=== PATIENT | female | born 1990 | race Caucasian/White ===

== ENCOUNTER 2017-06-25 07:58 | Inpatient (IN) | payer SELFPAY ==
[2017-06-25] MEDS ORDERED: Ephedrine Sulfate 50 MG/ML IV PRN (09:15)
[2017-06-25] MEDS ORDERED: OB EPIDURAL NAROPIN/SUFENTANIL IN NACL EPIDURAL PRN (09:15)
[2017-06-25] MEDS ORDERED: Lactated Ringers 1,000 ML IV ONE (09:15)
[2017-06-25] MEDS ORDERED: PITOCIN 30 UNITS/ LR 500 ML 500 ML IV SCH (09:30)
[2017-06-25] MEDS ORDERED: Lactated Ringers 1,000 ML IV SCH (09:30)
[2017-06-25] MEDS ORDERED: OMNIPEN 2 GM / NACL 100ML 100 ML ONE (09:35)
--- NOTE | 2017-06-25 10:14 | XRAY ---
Indication: Size and dates. Contractions. No care. 2-dimensional OB ultrasound performed. Comparison: None for this . There is a single viable intrauterine currently in cephalic presentation. Normal four-chamber heart with heart rates 138 BPM. Normal three-vessel cord. Cord insertion not seen. Visualized stomach, kidneys, and bladder appear unremarkable. Placenta is left lateral without abruption/previa. BPD measures 9.32 cm corresponding to 37 weeks 6 days. HC measures 33.00 cm corresponding to 37 weeks 4 days. AC measures 35.24 cm corresponding to 39 weeks 1 day. FL measures 7.63 cm corresponding to 39 weeks 0 day. SAVANNA is 3.3 cm. Impression: Single viable intrauterine with mean gestational age 38 weeks 3 days. Expected date confinement July 06, 2017. Oligohydramnios.
[2017-06-25] MEDS ORDERED: Anucort-HC SUPPOSITORY PR PRN (10:54)
[2017-06-25] MEDS ORDERED: TUCKS TP PRN (10:54)
[2017-06-25] MEDS ORDERED: Mylicon 80MG PO PRN (10:54)
[2017-06-25] MEDS ORDERED: MOTRIN 400 MG PO PRN (10:54)
[2017-06-25] MEDS ORDERED: NORCO 5/325 MG PO PRN (10:54)
[2017-06-25] MEDS ORDERED: TYLENOL EXTRA STRENGTH 500 MG PO PRN (10:54)
[2017-06-25] MEDS ORDERED: Dulcolax 10 MG SUPP PR PRN (10:54)
[2017-06-25] MEDS ORDERED: LANSINOH 40 GM TOP PRN (10:54)
[2017-06-25] MEDS ORDERED: Restoril 15 MG PO PRN (10:54)
[2017-06-25] MEDS ORDERED: Ambien 10 MG PO PRN (10:54)
[2017-06-25] MEDS ORDERED: CORTISONE 1% CREAM TP PRN (10:54)
[2017-06-25] MEDS ORDERED: Dermoplast Spray TP PRN (10:54)
[2017-06-25 12:46] LABS: ABO TYPING O; Antibody Screen NEGATIVE (NEGATIVE); RH TYPING POSITIVE
[2017-06-25] MEDS ORDERED: OMNIPEN 1GM / NaCl 100ML 100 ML IV SCH (13:17)
[2017-06-25] MEDS ORDERED: Colace 100 MG PO SCH (22:00)
[2017-06-26 06:10] LABS: BASOPHIL % 0.2 % (0.0-0.4); Basophil (Absolute #) 0.02 (0-0.4); Eosinophil % 1.1 % (0.00-5.0); Granulocyte Absolute (ANC) 6.67 (1.4-6.9); Hemoglobin 10.3 gm/dl (12.0-16.0); Lymphocyte (Absolute #) 1.56 (1.0-4.6); Lymphocytes % 17.3 % (24.0-44.0); Mean Cell Volume 79.9 fl (78-100); Mean Corpuscular Hemoglobin 24.9 pg (26-32); Mean Corpuscular Hgb Concent. 31.2 g/dl (32-36); Mean Platelet Volume 11.9 fl (6-9.5); Monocyte (Absolute #) 0.67 (0.0-1.3); Monocytes % 7.4 % (0.0-12.0); Platelet Count 171 K/mm3 (150-450); Red Blood Count 4.13 M/mm3 (4.1-5.4); Red Cell Distribution Width 16.1 % (11.5-14.0)
[2017-06-26 07:52] LABS: HEPATITIS B VIRUS CORE TOT AB Non Reactive (Non Reactive); HEPATITIS C VIRUS ANTIBODY Non Reactive (Non Reactive)
[2017-06-26 08:38] LABS: Slide Review 1 YES
[2017-06-26] MEDS ORDERED: FERREX 150 PO SCH (10:00)
[2017-06-26 11:25] LABS: Immune Status: Not Immune
[2017-06-26 11:56] VITALS: BP 120/65; PULSE 90
[2017-06-26 12:25] LABS: Amphetamine,Urine NEGATIVE (NEGATIVE); Barbiturate,Urine NEGATIVE (NEGATIVE); Benzodiazepine,Urine NEGATIVE (NEGATIVE); Cocaine,Urine NEGATIVE (NEGATIVE); Methadone,Urine NEGATIVE (NEGATIVE); Opiate,Urine NEGATIVE (NEGATIVE); PCP,Urine NEGATIVE (NEGATIVE); THC,Urine NEGATIVE (NEGATIVE)
[2017-06-26 13:30] LABS: RPR with Quantitation Non Reactive (Non Reactive)
[2017-06-27 05:13] LABS: HIV Antigen/Antibody Combo Non Reactive (Non Reactive)
== END 2017-06-26 13:00 | disposition left against medical advice (07) | DRG 775 ==
LOC: OB 07:58 → OBSVTOIN 09:11
PROVIDERS: ADMIT Family Medicine; ATTEND Family Medicine
PROC: 10E0XZZ Delivery of Products of Conception, External Approach (ICD-10-PCS; principal; 2017-06-25)
DX: O80 Encounter for full-term uncomplicated delivery (principal); Z3A.40 40 weeks gestation of pregnancy; Z37.0 Single live birth
CPT/HCPCS: 36415; 76805; 80074; 80307; 85025; 86592; 86593; 86701; 86702; 86762; 86780; 86850; 86900; 86901; 87389; 94799; G0378; J0290; J2590; J2795; A9270-GY